=== PATIENT | male | born 1995 | race Two or more races ===

== ENCOUNTER 2022-03-14 14:24 | Inpatient (IN) | payer MEDICAID ==
[~2022-03-14] VITALS: Ht 157.5 cm; Wt 56.5 kg
[2022-03-14 16:01] LABS: GLUCOMETER DEV NAME(LOC) POC.BV
[2022-03-14] MEDS ORDERED: ZOLPIDEM TARTRATE 10 MG TABLET PO PRN (16:15)
[2022-03-14] MEDS ORDERED: HALOPERIDOL 5 MG TABLET PO PRN (16:15)
[2022-03-14] MEDS ORDERED: PNEUMOCOCCAL VACCINE POLYVALENT 0.5 ML VIAL [PPSV23] IM. ONE (18:00)
[2022-03-14] MEDS ORDERED: INFLUENZA VIRUS VACCINE QVS 2022-23 (6MO+)/PF 60 MCG/0.5 ML SYRINGE IM. ONE (18:00)
[2022-03-14] MEDS: LORazepam 2 MG TABLET PO PRN (19:18)
[2022-03-14 21:10] VITALS: BP 134/90
[2022-03-15 07:20] LABS: BASOPHILS % (AUTO) 0.3 % (0.0-2.0); EOSINOPHILS % (AUTO) 1.3 % (1.0-6.0); HEMATOCRIT 43.3 % (41-53); HEMOGLOBIN 14.9 g/dL (13.5-17.5); LYMPHOCYTES # (AUTO) 2.3 K/uL (1.0-4.8); LYMPHOCYTES % (AUTO) 32.3 % (22.0-44.0); MEAN CORPUSCULAR HEMOGLOBIN 30.1 pg (26.0-34.0); MEAN CORPUSCULAR HGB CONC 34.5 G/dL (31.0-37.0); MEAN CORPUSCULAR VOLUME 87 fL (80-100); MONOCYTES # (AUTO) 0.5 K/uL (0.1-1.0); MONOCYTES % (AUTO) 7.1 % (2.0-9.0); NEUTROPHILS # (AUTO) 4.2 K/uL (1.8-7.7); PLATELET COUNT (AUTO) 236 K/uL (150-450); RED BLOOD CELL COUNT(AUTO) 4.97 MIL/uL (4.50-5.90); RED CELL DISTRIBUTION WIDTH 13.6 % (11.5-14.5)
[2022-03-15 07:42] LABS: ALANINE AMINOTRANSFERASE 23 U/L (12-78); ALBUMIN 4.5 g/dL (3.4-5.0); ALKALINE PHOSPHATASE 78 U/L (46-116); ANION GAP 10 mmol/L (8-16); ASPARTATE AMINOTRANSFERASE 11 U/L (15-37); CALCIUM, TOTAL 9.5 mg/dL (8.8-10.5); CARBON DIOXIDE 25 mmol/L (22-29); CHLORIDE 101 mmol/L (98-107); CHOL/HDL RATIO 4.3 (4.2-7.3); CHOLESTEROL 221 mg/dL (131-200); CREATININE 0.82 mg/dL (0.60-1.30); FREE T4 (FREE THYROXINE) 0.98 ng/dL (0.76-1.46); GLUCOSE,RANDOM 95 mg/dL (70-110); HDL CHOLESTEROL 51 mg/dL (40-60); LDL CHOL (CALC.) 149 mg/dL (0-130); POTASSIUM 3.6 mmol/L (3.5-5.1); SODIUM SERUM 136 mmol/L (136-145); THYROID STIMULATING HORMONE 1.24 uIU/mL (0.36-3.74); TOTAL PROTEIN, SERUM 8.1 g/dL (6.4-8.2); TRIGLYCERIDES 106 mg/dL (15-150); UREA NITROGEN, BLOOD 17 mg/dL (7-18)
[2022-03-15 07:44] LABS: GLOMERULAR FILTR. RATE CALC > 60 mL/min (>60)
[2022-03-15 08:00] LABS: HEMOGLOBIN A1C 4.8 % (3.8-5.6)
[2022-03-15 08:12] VITALS: BP 128/80
[2022-03-15] MEDS ORDERED: PETROLATUM,WHITE 28 GM JELLY TP PRN (09:45)
[2022-03-15] MEDS ORDERED: LOPERAMIDE HCL 2 MG CAPSULE PO PRN (09:45)
[2022-03-15] MEDS ORDERED: ALBUTEROL SULFATE HFA 90 MCG/PUFF 8 GM INHALER IH PRN (09:45)
[2022-03-15] MEDS ORDERED: DOCUSATE SODIUM 100 MG CAPSULE PO PRN (09:45)
[2022-03-15] MEDS ORDERED: ONDANSETRON HCL 4 MG TABLET PO PRN (09:45)
[2022-03-15] MEDS ORDERED: IBUPROFEN 400 MG TABLET PO PRN (09:45)
[2022-03-15] MEDS ORDERED: CloNIDine HCL 0.1 MG TABLET PO PRN (09:45)
[2022-03-15] MEDS ORDERED: GuaiFENesin/D-METHORPHAN [SUGAR-FREE] 200-20MG/10 ML SYRUP UDCUP PO PRN (09:45)
[2022-03-15] MEDS ORDERED: MAGNESIUM HYDROXIDE SUSPENSION 30 ML UDCUP PO PRN (09:45)
[2022-03-15] MEDS ORDERED: ACETAMINOPHEN 325 MG TABLET PO PRN (09:45)
[2022-03-15] MEDS ORDERED: MAG HYDROX/AL HYDROX/SIMETH ES 30 ML SUSPENSION UDCUP PO PRN (09:45)
[2022-03-15] MEDS ORDERED: NICOTINE 14 MG/24 HOUR PATCH TD PRN (09:45)
[2022-03-15] MEDS: TOPIRAMATE 25 MG TABLET PO SCH (12:12)
[2022-03-15] MEDS: GABAPENTIN 300 MG CAPSULE PO SCH (12:12)
[2022-03-15] MEDS: RisperiDONE 2 MG TABLET PO SCH (17:12)
[2022-03-15 20:40] VITALS: BP 134/88
[2022-03-15] MEDS: CloNIDine HCL 0.1 MG TABLET PO SCH (20:42)
[2022-03-15] MEDS ORDERED: ChlorproMAZINE HCL 100 MG TABLET PO SCH (21:00)
[2022-03-16 08:05] VITALS: BP 122/68
[2022-03-16] MEDS: TOPIRAMATE 25 MG TABLET PO SCH (09:12)
[2022-03-16] MEDS: GABAPENTIN 300 MG CAPSULE PO SCH (09:12)
[2022-03-16] MEDS: RisperiDONE 2 MG TABLET PO SCH ×2 (09:12→17:17)
[2022-03-16] MEDS: LORazepam 2 MG TABLET PO PRN (19:21)
[2022-03-16 20:25] VITALS: BP 121/81
[2022-03-16] MEDS: ChlorproMAZINE HCL 50 MG TABLET PO SCH (20:48)
[2022-03-16] MEDS: CloNIDine HCL 0.1 MG TABLET PO SCH (20:48)
[2022-03-17 08:45] VITALS: BP 132/86
[2022-03-17] MEDS: GABAPENTIN 300 MG CAPSULE PO SCH (09:04)
[2022-03-17] MEDS: RisperiDONE 2 MG TABLET PO SCH ×2 (09:04→17:04)
[2022-03-17] MEDS: TOPIRAMATE 25 MG TABLET PO SCH (09:04)
[2022-03-17] MEDS: ChlorproMAZINE HCL 50 MG TABLET PO SCH (20:14)
[2022-03-17] MEDS: CloNIDine HCL 0.1 MG TABLET PO SCH (20:14)
[2022-03-17] MEDS ORDERED: FLUTICASONE PROPIONATE 50 MCG/SPRAY 16 GM NASAL SPRAY NASAL PRN (20:15)
[2022-03-17 20:26] VITALS: BP 122/75
[2022-03-18 08:22] VITALS: BP 117/80
[2022-03-18] MEDS: GABAPENTIN 300 MG CAPSULE PO SCH (08:36)
[2022-03-18] MEDS: RisperiDONE 2 MG TABLET PO SCH (08:36)
[2022-03-18] MEDS: TOPIRAMATE 25 MG TABLET PO SCH (08:36)
[2022-03-19] MEDS ORDERED: CHLO50TA61 PO (21:16)
[2022-03-19] MEDS ORDERED: TOPI25 PO (21:16)
[2022-03-19] MEDS ORDERED: RISP2TAB86 PO (21:16)
[2022-03-19] MEDS ORDERED: GABA-1181 PO (21:16)
[2022-03-19] MEDS ORDERED: CHLO100T42 PO (21:16)
== END 2022-03-18 12:46 | disposition home or self-care (01) | DRG 750 ==
LOC: B2S 16:11
PROVIDERS: ADMIT Psychiatry & Neurology Child & Adolescent Psychiatry; ATTEND Psychiatry & Neurology Child & Adolescent Psychiatry
DX: F25.1 Schizoaffective disorder, depressive type (principal); E78.5 Hyperlipidemia, unspecified; F10.10 Alcohol abuse, uncomplicated; F84.0 Autistic disorder; J45.909 Unspecified asthma, uncomplicated; F41.9 Anxiety disorder, unspecified; Z20.822 Contact with and (suspected) exposure to COVID-19; Z79.899 Other long term (current) drug therapy; Z91.018 Allergy to other foods
CPT/HCPCS: 80053; 80061; 83036; 84439; 84443; 85025; 90686; 90732; Q0162